=== PATIENT | female | born 1960 | race Caucasian/White ===

== ENCOUNTER 2018-04-09 19:18 | Emergency (ER) | payer MEDICAID ==
[~2018-04-09] VITALS: Ht 165.1 cm; Wt 60.8 kg
[2018-04-09 19:26] VITALS: BP 98/59
[2018-04-09] MEDS ORDERED: TDAP [DIPH/PERTUSSIS/TET] 0.5 ML VIAL IM ONE ×2 (19:40→20:00)
[2018-04-09] MEDS ORDERED: AMOX/CLAVULANATE 875 MG TABLET ONE (19:40)
[2018-04-09] MEDS ORDERED: AMOX/CLAVULANATE 875 MG TABLET PO ONE (20:00)
== END 2018-04-09 20:00 | disposition home or self-care (01) ==
LOC: ER 19:20
DX: S61.051A Open bite of right thumb without damage to nail, initial encounter (principal); L08.9 Local infection of the skin and subcutaneous tissue, unspecified; W54.0XXA Bitten by dog, initial encounter; Y93.89 Activity, other specified; Y92.89 Other specified places as the place of occurrence of the external cause; Y99.8 Other external cause status
CPT/HCPCS: 90471; 90715; 99283; A4606